=== PATIENT | male | born 1970 | race Caucasian/White ===

== ENCOUNTER → 2022-01-19 | Outpatient (CLI) | payer OTHER ==
--- NOTE | 2022-01-19 16:36 | Diagnostic Imaging Report ---
INDICATION: Right kidney stone. COMPARISON: None available. TECHNIQUE: Abdomen dated January 19, 2022. FINDINGS: A 1.4 cm round hyperdensity is noted overlying the central aspect of the right renal shadow. No additional calcifications overlying the renal shadows or the expected course of bilateral ureters. No bowel obstruction. No free air. No acute osseous abnormality. IMPRESSION: 1.4 cm hyperdensity overlying the right renal shadow which may relate to a renal calculus versus overlying enteric contents. No bowel obstruction or free air. Dictated by: Dictated on workstation # [id number]
== END ==
LOC: RAD 13:10
PROVIDERS: ATTEND Urology
DX: N20.0 Calculus of kidney (principal)
CPT/HCPCS: 74018